=== PATIENT | male | born 1955 | race Two or more races ===

== ENCOUNTER 2016-07-08 07:28 | Emergency (ER) | payer OTHER ==
[2016-07-08 07:42] VITALS: BMI 37.1
--- NOTE | 2016-07-08 08:04 | PDOC ---
History of Present Illness - General Chief Complaint: Urinary Problem Stated Complaint: PAINFUL URINATION Time Seen by Provider: 07/08/16 07:47 History Source: Patient Exam Limitations: No Limitations - History of Present Illness Initial Comments: 07/08/16 08:05 Patient is a 61 year old male with PMH of BPH & possible scrotal hernia who presents to ED with painful urination. Patient states he takes Finasteride for his BPH but for the last 2 weeks he has had reduced urine output that is painful. He saw his PCP who prescribed Flomax & referred him to urology ( appointment was to be later today). He has had severe right scrotal swelling for the same time period. He has a history of hernias in the past, but the swelling has never been this severe. He has had constipation for last few days which has made urinating even more painful. He states the scrotal swelling worsens when he strains during a BM. Denies fever, chills, diarrhea, nausea or vomiting. Past History - Travel Traveled outside of the country in the last 30 days: No Close contact w/someone who was outside of country & ill: No - Past Medical History Allergies/Adverse Reactions: Allergies Allergy/AdvReac Type Severity Reaction Status Date / Time No Known Allergies Allergy Verified 07/08/16 07:39 Home Medications: Ambulatory Orders Finasteride [Proscar -] 5 mg PO DAILY 07/08/16 Tamsulosin HCl [Flomax] 0.4 mg PO DAILY 07/08/16 Disorders: Yes (ENLARGED PROSTATE, hernia hx) - Family Disease History Family Disease History: Other: Father ("Prostate problems") - Psycho/Social/Smoking Cessation Hx Suicidal Ideation: No Smoking History: Never smoked Have you smoked in the past 12 months: No Hx Alcohol Use: No Drug/Substance Use Hx: No Review of Systems - Review of Systems Able to Perform ROS?: Yes Is the patient limited Mac[place] proficient: No Constitutional: No: Chills, Fever, Night Sweats HEENTM: No: Recent change in vision, Throat Swelling, Difficulty Swallowing Respiratory: No: Cough, SOB with Exertion, Wheezing, Hemoptysis Cardiac (ROS): No: Chest Pain, Edema, Irregular Heart Rate, Lightheadedness ABD/GI: Yes: Abd. Pain w/ defecation, Constipated. No: Diarrhea, Nausea, Vomiting : Yes: Dysuria, Testicular Mass, Testicular Swelling, Testicular Pain Musculoskeletal: Yes: Back Pain Integumentary: No: Bruising, Change in Color, Erythema Neurological: No: Headache, Numbness, Tingling, Tremors All Other Systems: Reviewed and Negative *Physical Exam - Vital Signs Last Vital Signs Temp Pulse Resp BP Pulse Ox 97.8 F 73 18 140/57 95 07/08/16 07:30 07/08/16 07:30 07/08/16 07:30 07/08/16 07:30 07/08/16 07:30 - Physical Exam General Appearance: Yes: Nourished, Appropriately Dressed HEENT: positive: EOMI, YONATHAN, Pharynx Normal Neck: positive: Trachea midline, Rigid, Supple Respiratory/Chest: positive: Lungs Clear, Normal Breath Sounds Cardiovascular: positive: Regular Rhythm, Regular Rate, S1, S2 Gastrointestinal/Abdominal: positive: Normal Bowel Sounds, Soft, Other (right scrotal swelling, right testicle tender to palpation) Male Genitalia: positive: hernia Musculoskeletal: positive: CVA Tenderness (R) Extremity: positive: Normal Inspection, Normal Range of Motion Integumentary: positive: Normal Color, Dry, Warm Neurologic: positive: stack yield engineer II-XII NML intact, Alert, Normal Mood/Affect, Motor Strength 5/5 ED Treatment Course - LABORATORY CBC & Chemistry Diagram: 07/08/16 08:11 07/08/16 08:11 Medical Decision Making - Medical Decision Making 07/08/16 08:29 Patient likely has inguinal hernia into right scrotum. Ordered US of scrotum. UA , CBC, CMP ordered as well due to urinary retention. 07/08/16 10:24 Ultrasound revealed 10x5cm fluid filled structure likely representing bowel contents. No leukocytosis or signs of renal injury. Patient is instructed to go to his urologists office today to keep his appointment. Will instruct patient on how to reduce hernia. *DC/Admit/Observation/Transfer Diagnosis at time of Disposition: Inguinal hernia - Discharge Dispostion Disposition: HOME Condition at time of disposition: Good Admit: No - Referrals Referrals: Zack Quispe MD [Primary Care Provider] - Marcus Stauffer MD [Staff Physician] - 07/08/16 - Patient Instructions Additional Instructions: Go to your urologist Dr Stauffer TODAY for your appointment If you get a fever or pain becomes worse, come back to emergency room! Stay hydrated and return to hospital if you cannot urinate.
[2016-07-08 08:24] LABS: URINE APPEARANCE CLEAR; URINE BILIRUBIN NEGATIVE (NEGATIVE); URINE BLOOD NEGATIVE (NEGATIVE); URINE COLOR LTYELLOW; URINE GLUCOSE (UA) NEGATIVE (NEGATIVE); URINE KETONE NEGATIVE (NEGATIVE); URINE LEUK ESTERASE NEGATIVE (NEGATIVE); URINE NITRITE NEGATIVE (NEGATIVE); URINE PROTEIN NEGATIVE (NEGATIVE); URINE UROBILINOGEN NEGATIVE E.U./dl (0.2-1.0)
[2016-07-08 08:39] LABS: BASOPHIL 0.5 % (0-2.0); EOSINOPHIL 0.9 % (0-4.5); MCH 31.2 pg (25.7-33.7); MCHC 32.8 g/dl (32.0-35.9); MEAN CELL VOLUME 95.2 fl (80-96); MEAN PLT VOLUME 8.4 fl (7.5-11.1); NEUTROPHILS 68.6 % (42.8-82.8); PLATELET COUNT 220 K/MM3 (134-434); RDW 13.5 % (11.9-15.9)
[2016-07-08 08:56] LABS: ALBUMIN 3.7 g/dl (3.4-5.0); ALK PHOS 86 U/L (45-117); ANION GAP 7 (8-16); BILIRUBIN,TOTAL 0.4 mg/dL (0.2-1.0); CALCIUM 9.4 mg/dL (8.5-10.1); CO2 29 mmol/L (21-32); CREATININE 1.1 mg/dL (0.7-1.3); GLUCOSE,RANDOM 106 mg/dL (74-106); SGOT/AST 21 U/L (15-37); SGPT/ALT 33 U/L (12-78); TOT PROT 7.2 g/dl (6.4-8.2)
--- NOTE | 2016-07-08 09:26 | PDOC ---
Attending Attestation - Resident Resident Name: Solo Vyas - ED Attending Attestation I have performed the following: I have examined & evaluated the patient, The case was reviewed & discussed with the resident, I agree w/resident's findings & plan - HPI HPI: 07/08/16 09:24 61y M hx of bph presents with difficulty urinating and scrotal swelling for several weeks. pt able to urinate but states it come out in small dribbles. The pt also endorses pain and swelling in his R scrotum. No associated fever/chills , generalized weakness, dysuria. On exam the pt had a large but soft, non erythemadous, non edemadous scrotum, +scrotal swelling, suspect due to hernia. will ro uti, hematuria to suggest kidney stones will ck UA, labs, testicular US pt able to urinate here, 07/08/16 10:35 pts labs and UA neg. US suggestive of hernia. pt was given referral to a surgeon for evaluation of his hernia and will have pt keep his Urology fu appointment. discussed return precautions obstruction/incarceration pt feeling improved. return precautions were discussed - Physicial Exam PE: 07/08/16 09:26 see above - Medical Decision Making 07/08/16 09:26 see above
[2016-07-08 10:52] VITALS: BP 138/56; PULSE 81; TEMP 98
== END 2016-07-08 10:52 | disposition home or self-care (01) ==
LOC: JER 07:28
DX: K40.90 Unilateral inguinal hernia, without obstruction or gangrene, not specified as recurrent (principal); N40.0 Benign prostatic hyperplasia without lower urinary tract symptoms
CPT/HCPCS: 36415; 76870-TC; 80053; 81003; 85025; 99283-25